=== PATIENT | female | born 1970 | race Caucasian/White ===

== ENCOUNTER → 2016-11-09 | Outpatient (CLI) | payer OTHER | LOC: US 11-08 07:45 → KOH-I 08:45 → US 11-10 08:15 | DX: R10.84 Generalized abdominal pain (principal); K76.0 Fatty (change of) liver, not elsewhere classified | CPT/HCPCS: 76700 ==

== ENCOUNTER → 2016-11-11 | Outpatient (CLI) | payer OTHER ==
[2016-11-11 11:46] LABS: BUN/CREATININE RATIO 17 (0-10)
== END ==
LOC: LAB 11:01
PROVIDERS: Nurse Practitioner Family
DX: K59.1 Functional diarrhea (principal)
CPT/HCPCS: 36415; 80048

== ENCOUNTER 2016-11-29 21:59 | Emergency (ER) | payer OTHER | END 2016-11-30 01:50 | disposition left against medical advice (07) | LOC: ER1 21:59 | DX: R10.9 Unspecified abdominal pain (principal) | CPT/HCPCS: 81001 ==

== ENCOUNTER → 2016-12-01 | Outpatient (CLI) | payer OTHER | LOC: ECHO 11-30 11:30 | DX: R60.0 Localized edema (principal); I51.7 Cardiomegaly; I10 Essential (primary) hypertension; R07.9 Chest pain, unspecified; R42 Dizziness and giddiness | CPT/HCPCS: ECHO; 93306 ==

== ENCOUNTER → 2016-12-15 | Outpatient (CLI) | payer OTHER | LOC: RAD 15:33 | DX: R05 Cough (principal); J98.11 Atelectasis | CPT/HCPCS: 71020 ==

== ENCOUNTER → 2016-12-22 | Outpatient (CLI) | payer OTHER | LOC: US 15:00 | DX: R60.0 Localized edema (principal); Z53.9 Procedure and treatment not carried out, unspecified reason ==

== ENCOUNTER → 2017-02-02 | Outpatient (CLI) | payer OTHER | LOC: US 13:30 | DX: N17.9 Acute kidney failure, unspecified (principal) ==

== ENCOUNTER → 2017-02-07 | Outpatient (CLI) | payer OTHER | LOC: HEART 5 13:20 | DX: R60.0 Localized edema (principal) ==

== ENCOUNTER → 2020-10-28 | Outpatient (CLI) | payer OTHER | LOC: KOH-I 10-08 09:00 | DX: K76.0 Fatty (change of) liver, not elsewhere classified (principal); K83.8 Other specified diseases of biliary tract | CPT/HCPCS: 76705 ==

== ENCOUNTER → 2020-11-18 | Outpatient (CLI) | payer OTHER | LOC: KOH-I 09:34 | DX: M25.552 Pain in left hip (principal); M16.12 Unilateral primary osteoarthritis, left hip | CPT/HCPCS: 72170; 73502 ==

== ENCOUNTER → 2021-10-11 | Outpatient (CLI) | payer OTHER | LOC: EMI 16:27 | DX: M48.02 Spinal stenosis, cervical region (principal); G56.03 Carpal tunnel syndrome, bilateral upper limbs; E11.42 Type 2 diabetes mellitus with diabetic polyneuropathy; R20.2 Paresthesia of skin; G25.81 Restless legs syndrome; R26.81 Unsteadiness on feet | CPT/HCPCS: 72141 ==

== ENCOUNTER → 2021-12-14 | Day surgery (SDC) | payer OTHER ==
[~2021-12-14] MED LIST: CELEXA20 MG PO; COZAAR50 MG PO; GABAPENTIN400 MG PO; GLUMETZA500 MG PO; LIPITOR TAB 2020 MG PO; MELATONIN PO; TOPROL XL 50 MG50 MG PO; TRULICITY1.5 MG/0.5 SQ
== END | disposition home or self-care (01) ==
LOC: OR 11-30 11:45
DX: Z12.11 Encounter for screening for malignant neoplasm of colon (principal); K21.00 Gastro-esophageal reflux disease with esophagitis, without bleeding; G47.33 Obstructive sleep apnea (adult) (pediatric); E66.01 Morbid (severe) obesity due to excess calories; I10 Essential (primary) hypertension; E11.9 Type 2 diabetes mellitus without complications; K76.0 Fatty (change of) liver, not elsewhere classified; K64.0 First degree hemorrhoids; Z79.84 Long term (current) use of oral hypoglycemic drugs; Z90.710 Acquired absence of both cervix and uterus; Z86.010 Personal history of colon polyps; Z68.43 Body mass index [BMI] 50.0-59.9, adult; Z20.822 Contact with and (suspected) exposure to COVID-19; Z86.16 Personal history of COVID-19; Z95.828 Presence of other vascular implants and grafts
CPT/HCPCS: 82962; J2704; J7040